=== PATIENT | female | born 2000 | race Caucasian/White ===

== ENCOUNTER 2022-01-11 23:35 | Emergency (ER) | payer OTHER ==
[~2022-01-11] VITALS: Ht 157.5 cm; Wt 72.7 kg
[2022-01-12] MEDS ORDERED: ACETAMINOPHEN 500 MG TABLET PO ONE (00:15)
[2022-01-12] MEDS ORDERED: BACITRACIN 0.9 GM PACKET OINTMENT TP ONE (00:30)
[2022-01-12 01:07] VITALS: BP 129/88
[2022-01-12] MEDS ORDERED: BACI28OI29 TP (01:29)
== END 2022-01-12 01:10 | disposition home or self-care (01) ==
LOC: EMS 23:38
DX: O26.893 Other specified pregnancy related conditions, third trimester (principal); T21.22XA Burn of second degree of abdominal wall, initial encounter; T24.211A Burn of second degree of right thigh, initial encounter; T21.21XA Burn of second degree of chest wall, initial encounter; Z3A.35 35 weeks gestation of pregnancy; W45.8XXA Other foreign body or object entering through skin, initial encounter; Y93.89 Activity, other specified; Y92.89 Other specified places as the place of occurrence of the external cause; Y99.8 Other external cause status
CPT/HCPCS: 16020; 99282; Z7502; Z7610